=== PATIENT | female | born 1985 | race Caucasian/White ===

== ENCOUNTER 2017-03-20 20:16 | Emergency (ER) | payer OTHER | END 2017-03-20 21:25 | disposition home or self-care (01) | LOC: FTE 20:16 → E/R 21:25 | DX: M54.2 Cervicalgia (principal) | CPT/HCPCS: 99283; Z7502 ==

== ENCOUNTER 2017-05-04 17:47 | Emergency (ER) | payer SELFPAY, OTHER | END 2017-05-04 21:08 | disposition left against medical advice (07) | LOC: FTE 17:47 | DX: Z53.21 Procedure and treatment not carried out due to patient leaving prior to being seen by health care provider (principal) ==

== ENCOUNTER 2017-05-05 19:06 | Emergency (ER) | payer OTHER ==
[2017-05-05] MEDS: IBUPROFEN 600 MG TAB PO (20:52)
== END 2017-05-05 22:08 | disposition home or self-care (01) ==
LOC: FTE 19:06
DX: M54.2 Cervicalgia (principal); F17.210 Nicotine dependence, cigarettes, uncomplicated; L30.9 Dermatitis, unspecified
CPT/HCPCS: 72040; 99283

== ENCOUNTER 2018-04-28 13:38 | Emergency (ER) | payer SELFPAY, OTHER | END 2018-04-28 18:23 | disposition left against medical advice (07) | LOC: FTE 13:38 | DX: Z53.21 Procedure and treatment not carried out due to patient leaving prior to being seen by health care provider (principal) ==